=== PATIENT | female | born 1985 | race Caucasian/White ===

== ENCOUNTER 2021-03-21 10:05 | Outpatient (CLI) | payer OTHER | END 2021-03-21 10:06 | disposition home or self-care (01) | LOC: BICMAMMO 10:05 | PROVIDERS: ATTEND Obstetrics & Gynecology | DX: Z12.31 Encounter for screening mammogram for malignant neoplasm of breast (principal); Z80.3 Family history of malignant neoplasm of breast; Z98.82 Breast implant status | CPT/HCPCS: 77063; 77067 ==

== ENCOUNTER 2023-04-23 13:57 | Outpatient (CLI) | payer OTHER | END 2023-04-23 13:58 | disposition home or self-care (01) | LOC: BICMAMMO 13:57 | PROVIDERS: ATTEND Obstetrics & Gynecology | DX: Z12.31 Encounter for screening mammogram for malignant neoplasm of breast (principal); Z80.3 Family history of malignant neoplasm of breast; Z91.89 Other specified personal risk factors, not elsewhere classified; Z98.82 Breast implant status | CPT/HCPCS: 77063; 77067 ==